=== PATIENT | male | born 1945 | race Two or more races ===

== ENCOUNTER 2023-12-03 23:06 | Inpatient (IN) | payer MEDICARE, OTHER ==
[~2023-12-03] VITALS: Ht 152.4 cm; Wt 49.9 kg
[2023-12-03 23:52] LABS: BASOPHILS # (AUTO) 0.1 K/uL (0.0-0.2); BASOPHILS % (AUTO) 0.6 % (0.0-2.0); EOSINOPHILS # (AUTO) 0.1 K/uL (0.0-0.7); EOSINOPHILS % (AUTO) 1.6 % (0.0-6.0); HEMATOCRIT 32 % (39-51); HEMOGLOBIN 10.7 g/dL (13.5-17.5); LYMPHOCYTES # (AUTO) 0.5 K/uL (0.8-4.8); MEAN CORPUSCULAR HEMOGLOBIN 29 PG (26.0-33.0); MEAN CORPUSCULAR HGB CONC 33 g/dl (31.0-36.0); MEAN CORPUSCULAR VOLUME 88 fL (80-96); MONOCYTES # (AUTO) 0.7 K/uL (0.1-1.30); NEUTROPHILS # (AUTO) 7.5 K/uL (1.8-8.9); NEUTROPHILS % (AUTO) 83.8 % (43.0-81.0); PLATELET COUNT (AUTO) 202 K/uL (150-450); RED BLOOD CELL COUNT(AUTO) 3.65 MIL/uL (4.5-6.0); RED CELL DISTRIBUTION WIDTH 13.9 % (11.5-15.0)
[2023-12-04 00:02] LABS: CALCIUM, SERUM 8.7 mg/dL (8.5-10.1); CREATININE 0.9 mg/dL (0.6-1.3); POTASSIUM 3.9 mmol/L (3.5-5.1)
[2023-12-04 00:11] LABS: LACTIC ACID 1.2 mmol/L (0.4-2.0)
[2023-12-04] MEDS ORDERED: KETOROLAC TROMETHAMINE 15 MG/ML VIAL ONE (00:16)
[2023-12-04 00:17] LABS: ALBUMIN 2.1 g/dL (3.4-5.0); BILIRUBIN,TOTAL 0.3 mg/dL (0.2-1.0); TOTAL PROTEIN, SERUM 6.9 g/dL (6.4-8.2)
[2023-12-04] MEDS: KETOROLAC TROMETHAMINE 15 MG/ML VIAL IM ONE (00:20)
[2023-12-04 00:33] LABS: APPEARANCE,URINE CLEAR (CLEAR); BILIRUBIN,URINE NEGATIVE (NEGATIVE); BLOOD, URINE NEGATIVE Ery/uL (NEGATIVE); COLOR,URINE YELLOW (YELLOW); KETONES,URINE NEGATIVE (NEGATIVE); LEUKOCYTE ESTERASE ,URINE NEGATIVE (NEGATIVE); NITRITE, URINE NEGATIVE (NEGATIVE); PROTEIN,URINE TRACE mg/dl (NEGATIVE); UGLUCOSE TRACE mg/dL (NEGATIVE)
[2023-12-04] MEDS ORDERED: HYDROCODONE/APAP 5/325MG TABLET PO PRN (02:00)
[2023-12-04] MEDS ORDERED: MAGNESIUM HYDROXIDE 30 ML UDC PO PRN (02:00)
[2023-12-04] MEDS ORDERED: MAG HYDROX/AL HYDROX/SIMETH 30 ML UDC PO PRN (02:00)
[2023-12-04] MEDS ORDERED: ACETAMINOPHEN 325 MG TABLET PO PRN (02:00)
[2023-12-04] MEDS ORDERED: MORPHINE SULFATE INJ 2 MG/ML DISP.SYRIN IV PRN (02:00)
[2023-12-04] MEDS ORDERED: Z GUARD REMEDY 4 OZ OINT TP PRN (02:00)
[2023-12-04] MEDS ORDERED: ONDANSETRON HCL/PF 4 MG/2 ML VIAL IVP PRN (02:00)
[2023-12-04 02:30] VITALS: BP 136/67; TEMP 97.9; O2SAT 98
[2023-12-04] MEDS: IV 1/2NS 1000 ML 1,000 ML IV PRN (03:08)
[2023-12-04] MEDS: ENOXAPARIN SODIUM 40 MG/0.4 ML DISP.SYRIN SQ SCH (03:12)
[2023-12-04 04:00] VITALS: BP 114/42; TEMP 98; O2SAT 96
[2023-12-04 08:00] VITALS: BP 97/85; TEMP 98.1; O2SAT 99
[2023-12-04] MEDS ORDERED: MAGN400O6 PO (08:17)
[2023-12-04] MEDS ORDERED: DIVA125C5 PO (08:17)
[2023-12-04] MEDS ORDERED: OLAN2.5T3 PO (08:17)
[2023-12-04] MEDS ORDERED: AMIN30LI2 PO (08:17)
[2023-12-04] MEDS ORDERED: ACET-868 PO (08:17)
[2023-12-04] MEDS ORDERED: MAG355OR18 PO (08:17)
[2023-12-04] MEDS ORDERED: TAMS-12 PO (08:17)
[2023-12-04] MEDS: PANTOPRAZOLE 40 MG TABLET.DR PO SCH (09:45)
[2023-12-04 12:00] VITALS: BP 130/70; TEMP 98.8; O2SAT 98
[2023-12-04] MEDS: HYDROCODONE/APAP 10/325MG TABLET PO PRN (13:45)
[2023-12-04 16:00] VITALS: BP 110/51; TEMP 98.2; O2SAT 94
[2023-12-04 20:00] VITALS: BP 119/49; TEMP 97.9; O2SAT 97
[2023-12-04 21:37] LABS: APPEARANCE,URINE CLOUDY (CLEAR); BILIRUBIN,URINE 1+ (NEGATIVE); BLOOD, URINE NEGATIVE Ery/uL (NEGATIVE); COLOR,URINE YELLOW (YELLOW); KETONES,URINE NEGATIVE (NEGATIVE); LEUKOCYTE ESTERASE ,URINE NEGATIVE (NEGATIVE); NITRITE, URINE NEGATIVE (NEGATIVE); PH,URINE 5.5 (5.0-8.0); PROTEIN,URINE TRACE mg/dl (NEGATIVE); UGLUCOSE NEGATIVE (NEGATIVE)
[2023-12-04 21:40] LABS: INR 1.14 (0.91-1.10); PARTIAL THROMBOPLASTIN TIME 31.8 SEC (24.3-34.3)
[2023-12-04 22:08] LABS: ADD URINE CULTURE NO; BACTERIA,URINE None seen /HPF (None Seen); RBC,URINE 0-2 /HPF (0-2); SQUAMOUS EPITHELIAL CELL,UR 0-2 /HPF (None Seen); URINE AMORPHOUS URATE Moderate /HPF (None Seen); WBC,URINE 0-2 /HPF (0-3)
[2023-12-05] VITALS (14 sets, daily range): BP systolic 94–120; BP diastolic 42–79; TEMP 96.4–99.1; O2SAT 95–99
[2023-12-05 06:21] LABS: EOSINOPHILS # (AUTO) 0.2 K/uL (0.0-0.7); EOSINOPHILS % (AUTO) 2.7 % (0.0-6.0); HEMATOCRIT 29 % (39-51); HEMOGLOBIN 9.5 g/dL (13.5-17.5); LYMPHOCYTES # (AUTO) 0.5 K/uL (0.8-4.8); LYMPHOCYTES % (AUTO) 7.3 % (20.0-44.0); MEAN CORPUSCULAR HEMOGLOBIN 29 PG (26.0-33.0); MEAN CORPUSCULAR HGB CONC 33 g/dl (31.0-36.0); MEAN CORPUSCULAR VOLUME 89 fL (80-96); MONOCYTES # (AUTO) 0.3 K/uL (0.1-1.30); MONOCYTES % (AUTO) 5.1 % (2.0-12.0); NEUTROPHILS # (AUTO) 5.7 K/uL (1.8-8.9); NEUTROPHILS % (AUTO) 84.9 % (43.0-81.0); PLATELET COUNT (AUTO) 174 K/uL (150-450); RED BLOOD CELL COUNT(AUTO) 3.27 MIL/uL (4.5-6.0); RED CELL DISTRIBUTION WIDTH 13.7 % (11.5-15.0); WHITE BLOOD COUNT (AUTO) 6.7 K/uL (4.3-11.0)
[2023-12-05 06:32] LABS: CALCIUM, SERUM 8.5 mg/dL (8.5-10.1); CARBON DIOXIDE 29 mmol/L (21-32); CHLORIDE 110 mmol/L (98-107); CREATININE 0.8 mg/dL (0.6-1.3); GLUCOSE 100 mg/dL (74-106); POTASSIUM 3.9 mmol/L (3.5-5.1); SODIUM SERUM 143 mmol/L (136-145); UREA NITROGEN, BLOOD 31 mg/dL (7-18)
[2023-12-05] MEDS ORDERED: POLYMYXIN B SULFATE 500,000 UNITS ONE (07:03)
[2023-12-05] MEDS ORDERED: VANCOMYCIN 1 GM VIAL ONE (07:04)
[2023-12-05] MEDS ORDERED: BUPIVACAINE 0.5 % PF 150 MG/30 ML VIAL ONE (07:04)
[2023-12-05] MEDS ORDERED: ANESTHESIA TRAY IN PYXIS 1 EA TRAY MC ONE (07:04)
[2023-12-05] MEDS ORDERED: FENTANYL PF 100MCG/2ML AMPUL ONE (07:38)
[2023-12-05] MEDS ORDERED: METOPROLOL TARTRATE INJ 5 MG/5 ML AMPUL ONE (07:39)
[2023-12-05] MEDS ORDERED: LABETALOL HCL IV 100MG VIAL ONE (07:40)
[2023-12-05] MEDS ORDERED: VASOPRESSIN INJ 20 UNIT/ML VIAL ONE (07:40)
[2023-12-05 08:53] LABS: THYROID STIMULATING HORMONE 1.401 uIU/mL (0.358-3.74)
[2023-12-05] MEDS ORDERED: MORPHINE SULFATE INJ 2 MG/ML DISP.SYRIN IV PRN (10:32)
[2023-12-05] MEDS ORDERED: MAGNESIUM HYDROXIDE 30 ML UDC PO PRN (11:30)
[2023-12-05] MEDS ORDERED: ACETAMINOPHEN 325 MG TABLET PO PRN (11:30)
[2023-12-05] MEDS ORDERED: MAG HYDROX/AL HYDROX/SIMETH 30 ML UDC PO PRN (11:30)
[2023-12-05] MEDS: DIVALPROEX SODIUM 125 MG CAP.SPRINK PO SCH (13:00)
[2023-12-05] MEDS: IV D5/0.45 NACL W/20 MEQ KCL 1L IV PRN (13:37)
[2023-12-05] MEDS: ANCEF 1 GM/50 ML D5W IV SCH (17:10)
[2023-12-05] MEDS: OLANZAPINE 2.5 MG TABLET PO SCH (21:00)
[2023-12-05] MEDS: TAMSULOSIN 0.4 MG CAP.SR.24H PO SCH (21:31)
[2023-12-06 01:00] VITALS: BP 107/71; TEMP 98.8; O2SAT 96
[2023-12-06 05:04] VITALS: BP 112/78; TEMP 98.8; O2SAT 94
[2023-12-06 06:53] LABS: BASOPHILS % (AUTO) 0.1 % (0.0-2.0); EOSINOPHILS % (AUTO) 0.4 % (0.0-6.0); HEMATOCRIT 26 % (39-51); HEMOGLOBIN 8.6 g/dL (13.5-17.5); LYMPHOCYTES # (AUTO) 1.2 K/uL (0.8-4.8); LYMPHOCYTES % (AUTO) 14.2 % (20.0-44.0); MEAN CORPUSCULAR HEMOGLOBIN 29 PG (26.0-33.0); MEAN CORPUSCULAR HGB CONC 33 g/dl (31.0-36.0); MEAN CORPUSCULAR VOLUME 88 fL (80-96); MONOCYTES # (AUTO) 1.1 K/uL (0.1-1.30); MONOCYTES % (AUTO) 12.3 % (2.0-12.0); NEUTROPHILS # (AUTO) 6.3 K/uL (1.8-8.9); PLATELET COUNT (AUTO) 195 K/uL (150-450); RED BLOOD CELL COUNT(AUTO) 2.93 MIL/uL (4.5-6.0); RED CELL DISTRIBUTION WIDTH 13.4 % (11.5-15.0); WHITE BLOOD COUNT (AUTO) 8.6 K/uL (4.3-11.0)
[2023-12-06 07:16] LABS: CALCIUM, SERUM 8.1 mg/dL (8.5-10.1); CREATININE 0.9 mg/dL (0.6-1.3); MAGNESIUM 1.9 mg/dL (1.8-2.4); PHOSPHORUS 2.4 mg/dL (2.5-4.9); POTASSIUM 4.1 mmol/L (3.5-5.1)
[2023-12-06 08:00] VITALS: BP 121/47; TEMP 98.6; O2SAT 93
[2023-12-06] MEDS: PROSTAT (PYXIS) 30 ML UDC PO SCH (09:08)
[2023-12-06 16:00] VITALS: BP 124/87; TEMP 98.9; O2SAT 93
[2023-12-06] MEDS: NEUTRA PHOS 1 POWD.PACKET PO ONE (16:34)
[2023-12-06] MEDS: ENSURE ENLIVE CHOC 237 ML CAN PO SCH (17:18)
[2023-12-06 20:00] VITALS: BP 125/99; TEMP 98.4; O2SAT 90
[2023-12-07] VITALS: BP 117/49; TEMP 98.2; O2SAT 98
[2023-12-07 04:00] VITALS: BP 108/39; TEMP 98.5; O2SAT 95
[2023-12-07 07:44] LABS: EOSINOPHILS # (AUTO) 0.1 K/uL (0.0-0.7); EOSINOPHILS % (AUTO) 1.8 % (0.0-6.0); HEMATOCRIT 24 % (39-51); HEMOGLOBIN 7.8 g/dL (13.5-17.5); LYMPHOCYTES # (AUTO) 2.1 K/uL (0.8-4.8); LYMPHOCYTES % (AUTO) 25.5 % (20.0-44.0); MEAN CORPUSCULAR HEMOGLOBIN 29 PG (26.0-33.0); MEAN CORPUSCULAR HGB CONC 33 g/dl (31.0-36.0); MEAN CORPUSCULAR VOLUME 88 fL (80-96); MONOCYTES # (AUTO) 0.9 K/uL (0.1-1.30); MONOCYTES % (AUTO) 10.9 % (2.0-12.0); NEUTROPHILS % (AUTO) 61.8 % (43.0-81.0); PLATELET COUNT (AUTO) 189 K/uL (150-450); RED BLOOD CELL COUNT(AUTO) 2.68 MIL/uL (4.5-6.0); RED CELL DISTRIBUTION WIDTH 13.5 % (11.5-15.0); WHITE BLOOD COUNT (AUTO) 8.1 K/uL (4.3-11.0)
[2023-12-07 08:00] VITALS: BP 102/49; TEMP 98.4; O2SAT 97
[2023-12-07 08:45] LABS: CALCIUM, SERUM 7.9 mg/dL (8.5-10.1); CARBON DIOXIDE 25 mmol/L (21-32); CHLORIDE 108 mmol/L (98-107); CREATININE 0.7 mg/dL (0.6-1.3); GLUCOSE 139 mg/dL (74-106); MAGNESIUM 1.7 mg/dL (1.8-2.4); PHOSPHORUS 2.4 mg/dL (2.5-4.9); POTASSIUM 3.7 mmol/L (3.5-5.1); SODIUM SERUM 139 mmol/L (136-145); UREA NITROGEN, BLOOD 16 mg/dL (7-18)
[2023-12-07] MEDS: MAGNESIUM OXIDE 400 MG TABLET PO ONE (10:00)
[2023-12-07 10:10] LABS: *SPE A/G RATIO 0.7 (0.7-1.7); *SPE ALBUMIN 2.2 g/dL (2.9-4.4); *SPE ALPHA-1-GLOBULIN 0.4 g/dL (0.0-0.4); *SPE ALPHA-2-GLOBULIN 0.7 g/dL (0.4-1.0); *SPE BETA GLOBULIN 0.8 g/dL (0.7-1.3); *SPE GLOBULIN, TOTAL 3.3 g/dL (2.2-3.9); *SPE M-SPIKE Not Observed g/dL (Not Observed); *SPE PROTEIN TOTAL 5.5 g/dL (6.0-8.5); *SPEGAMMA GLOBULIN 1.4 g/dL (0.4-1.8)
[2023-12-07 12:00] VITALS: BP 108/60; TEMP 98.4; O2SAT 99
[2023-12-07 16:00] VITALS: BP 101/59; TEMP 98.8; O2SAT 98
[2023-12-07] MEDS: NEUTRA PHOS 1 POWD.PACKET PO ONE (16:33)
[2023-12-07 20:00] VITALS: BP 142/112; TEMP 98.6; O2SAT 96
[2023-12-08] VITALS: BP 119/102; TEMP 98.4; O2SAT 96
[2023-12-08 04:00] VITALS: BP 109/96; TEMP 98.2; O2SAT 98
[2023-12-08 06:41] LABS: BASOPHILS % (AUTO) 0.3 % (0.0-2.0); EOSINOPHILS # (AUTO) 0.3 K/uL (0.0-0.7); EOSINOPHILS % (AUTO) 4.5 % (0.0-6.0); HEMATOCRIT 24 % (39-51); LYMPHOCYTES # (AUTO) 1.4 K/uL (0.8-4.8); LYMPHOCYTES % (AUTO) 18.3 % (20.0-44.0); MEAN CORPUSCULAR HEMOGLOBIN 29 PG (26.0-33.0); MEAN CORPUSCULAR HGB CONC 33 g/dl (31.0-36.0); MEAN CORPUSCULAR VOLUME 88 fL (80-96); MONOCYTES # (AUTO) 0.9 K/uL (0.1-1.30); MONOCYTES % (AUTO) 11.7 % (2.0-12.0); NEUTROPHILS # (AUTO) 4.8 K/uL (1.8-8.9); NEUTROPHILS % (AUTO) 65.2 % (43.0-81.0); PLATELET COUNT (AUTO) 169 K/uL (150-450); RED BLOOD CELL COUNT(AUTO) 2.73 MIL/uL (4.5-6.0); RED CELL DISTRIBUTION WIDTH 13.6 % (11.5-15.0); WHITE BLOOD COUNT (AUTO) 7.4 K/uL (4.3-11.0)
[2023-12-08 06:57] LABS: CALCIUM, SERUM 7.8 mg/dL (8.5-10.1); CREATININE 0.8 mg/dL (0.6-1.3); MAGNESIUM 1.7 mg/dL (1.8-2.4); PHOSPHORUS 2.1 mg/dL (2.5-4.9); POTASSIUM 3.9 mmol/L (3.5-5.1)
[2023-12-08 08:29] VITALS: BP 101/49; TEMP 98.4; O2SAT 98
[2023-12-08] MEDS: MAGNESIUM OXIDE 400 MG TABLET PO ONE (10:33)
[2023-12-08] MEDS: OLANZAPINE ZYDIS 5 MG TAB.RAPDIS PO SCH (11:16)
[2023-12-08 12:00] VITALS: BP 119/54; TEMP 98.3; O2SAT 97
[2023-12-08] MEDS: NEUTRA PHOS 1 POWD.PACKET PO ONE (16:03)
[2023-12-08 16:13] VITALS: BP 112/56; TEMP 99.5; O2SAT 97
[2023-12-08 20:00] VITALS: BP 112/53; TEMP 97.7; O2SAT 96
[2023-12-09] VITALS: BP 108/51; TEMP 98.6; O2SAT 95
[2023-12-09 04:00] VITALS: BP 122/71; TEMP 98.1; O2SAT 98
[2023-12-09 06:15] LABS: BASOPHILS % (AUTO) 0.4 % (0.0-2.0); EOSINOPHILS # (AUTO) 0.5 K/uL (0.0-0.7); EOSINOPHILS % (AUTO) 7.7 % (0.0-6.0); HEMATOCRIT 25 % (39-51); HEMOGLOBIN 8.4 g/dL (13.5-17.5); LYMPHOCYTES # (AUTO) 1.2 K/uL (0.8-4.8); LYMPHOCYTES % (AUTO) 17.7 % (20.0-44.0); MEAN CORPUSCULAR HEMOGLOBIN 30 PG (26.0-33.0); MEAN CORPUSCULAR HGB CONC 34 g/dl (31.0-36.0); MEAN CORPUSCULAR VOLUME 87 fL (80-96); MONOCYTES # (AUTO) 0.7 K/uL (0.1-1.30); MONOCYTES % (AUTO) 10.5 % (2.0-12.0); NEUTROPHILS # (AUTO) 4.3 K/uL (1.8-8.9); NEUTROPHILS % (AUTO) 63.7 % (43.0-81.0); PLATELET COUNT (AUTO) 197 K/uL (150-450); RED BLOOD CELL COUNT(AUTO) 2.86 MIL/uL (4.5-6.0); RED CELL DISTRIBUTION WIDTH 13.6 % (11.5-15.0); WHITE BLOOD COUNT (AUTO) 6.7 K/uL (4.3-11.0)
[2023-12-09 06:52] LABS: CARBON DIOXIDE 27 mmol/L (21-32); CHLORIDE 104 mmol/L (98-107); CREATININE 0.8 mg/dL (0.6-1.3); GLUCOSE 116 mg/dL (74-106); MAGNESIUM 1.8 mg/dL (1.8-2.4); PHOSPHORUS 2.6 mg/dL (2.5-4.9); POTASSIUM 3.8 mmol/L (3.5-5.1); SODIUM SERUM 138 mmol/L (136-145); UREA NITROGEN, BLOOD 15 mg/dL (7-18)
[2023-12-09 07:30] VITALS: BP 114/54; TEMP 98.1; O2SAT 100
[2023-12-09] MEDS ORDERED: ENOX40DI SQ (15:17)
== END 2023-12-09 17:43 | DRG 521 ==
LOC: ER 23:08 → MED 12-04 01:39 → TELE 12-04 02:26
PROVIDERS: ADMIT Nurse Practitioner Acute Care; ATTEND Student in an Organized Health Care Education/Training Program
PROC: 0SRR0JZ Replacement of Right Hip Joint, Femoral Surface with Synthetic Substitute, Open Approach (ICD-10-PCS; principal; 2023-12-05)
DX: S72.001A Fracture of unspecified part of neck of right femur, initial encounter for closed fracture (principal); G93.41 Metabolic encephalopathy; R64 Cachexia; E44.0 Moderate protein-calorie malnutrition; F02.83 Dementia in other diseases classified elsewhere, unspecified severity, with mood disturbance; F02.82 Dementia in other diseases classified elsewhere, unspecified severity, with psychotic disturbance; G30.9 Alzheimer's disease, unspecified; N40.0 Benign prostatic hyperplasia without lower urinary tract symptoms; E88.09 Other disorders of plasma-protein metabolism, not elsewhere classified; X58.XXXA Exposure to other specified factors, initial encounter; Y93.9 Activity, unspecified; Y92.129 Unspecified place in nursing home as the place of occurrence of the external cause; Z68.21 Body mass index [BMI] 21.0-21.9, adult; R53.1 Weakness; K59.00 Constipation, unspecified; R73.9 Hyperglycemia, unspecified; F29 Unspecified psychosis not due to a substance or known physiological condition; F39 Unspecified mood [affective] disorder
CPT/HCPCS: 36415; 70450-TC; 71045-TC; 72170-TC; 72192-TC; 73501; 80048-TC; 80053-TC; 81001; 83605-TC; 83735-TC; 83880; 84100-TC; 84155; 84165; 84439-TC; 84443-TC; 84484-TC; 85025-TC; 85610-TC; 85730-TC; 86850-TC; 87081-TC; 87086-TC; 88305-TC; 88311-TC; 92526; 92611-TC; 97110-TC; 97112-TC; 97530-TC; A4217; A4223; A6209; C1776; G0378; J0330; J0690; J1100; J1650; J1885; J2405; J2704; J3010; J3370; J3480; J3490; J7030; J7040; J7060